=== PATIENT | male | born 1945 | race Caucasian/White ===

== ENCOUNTER 2019-10-20 09:45 | Day surgery (SDC) | payer MEDICARE, BC ==
[~2019-10-20] VITALS: Ht 175.3 cm; Wt 112.8 kg
[2019-10-20] VITALS (12 sets, daily range): BP systolic 112–154; BP diastolic 59–90
[2019-10-20] MEDS ORDERED: diphenhydrAMINE 25mg capsule PO PRN (10:05)
[2019-10-20] MEDS ORDERED: normal saline 1,000 ML IV SCH (10:05)
[2019-10-20] MEDS ORDERED: nitroGLYCERIN 0.4mg SUBLingual tab SL PRN (10:05)
[2019-10-20] MEDS ORDERED: LORazepam 0.5 MG tablet PO PRN (10:05)
[2019-10-20] MEDS ORDERED: MELO-102 PO (10:28)
[2019-10-20] MEDS ORDERED: MIRA50TA PO (10:28)
[2019-10-20] MEDS ORDERED: IRBE75TA8 PO (10:28)
[2019-10-20] MEDS ORDERED: LISI-600 PO (10:28)
[2019-10-20] MEDS ORDERED: FLUT16SP2 BOTHNARES (10:32)
[2019-10-20] MEDS ORDERED: FLO0.4C PO (10:32)
[2019-10-20] MEDS ORDERED: DIPH-689 PO (10:32)
[2019-10-20] MEDS ORDERED: IBUP-2697 PEG (10:32)
[2019-10-20] MEDS ORDERED: iohexol 350 MG/ML 50ML vial IV ONE (10:36)
[2019-10-20] MEDS ORDERED: fentaNYL/PF 50MCG/1 ML 2ML syringe ONE (10:36)
[2019-10-20] MEDS ORDERED: midazolam 2 mg/2 ml injection ONE (10:36)
[2019-10-20] MEDS ORDERED: LIDOcaine 1% (10mg/ml)w/preservative injection 20ml MDV ONE (10:36)
[2019-10-20] MEDS ORDERED: iohexol 350MG/ML 100ml bottle IV ONE (10:36)
[2019-10-20 11:06] LABS: ALBUMIN 3.9 G/DL (3.4-5.0); ANION GAP 6 (8-16); BLOOD UREA NITROGEN 20 MG/DL (7-18); BUN/CREATININE RATIO 20.6 (5.4-32.0); CALCIUM 8.9 MG/DL (8.5-10.1); CHLORIDE 103 MMOL/L (99-107); CREATININE 0.97 MG/DL (0.60-1.10); GLUCOSE 112 MG/DL (70-104); POTASSIUM 4.2 MMOL/L (3.5-5.1); SODIUM 135 MMOL/L (135-145); eGFR 76 ML/MIN
[2019-10-20 11:08] LABS: PARTIAL THROMBOPLASTIN TIME 29 SECONDS (22-32)
[2019-10-20 11:11] LABS: EOSINOPHILS # (AUTO) 0.1 X10'3 (0-0.9); EOSINOPHILS % (AUTO) 1.9 % (0-6); HEMOGLOBIN 14.4 g/dl (14.0-17.9); LYMPHOCYTES # (AUTO) 1.1 X10'3 (1.1-4.8); MEAN CORPUSCULAR HEMOGLOBIN 30.8 PG (27.0-31.0); MEAN CORPUSCULAR HGB CONC 33.5 g/dL (33.0-36.5); MEAN PLATELET VOLUME 6.9 FL (7.4-10.4); MONOCYTES # (AUTO) 0.6 X10'3 (0-0.9); MONOCYTES % (AUTO) 13.1 % (2-12); NEUTROPHILS # (AUTO) 2.8 X10'3 (1.8-7.7); PLATELET COUNT 226 X10'3 (140-440); RED BLOOD COUNT 4.68 X10'6 (4.70-6.10); RED CELL DISTRIBUTION WIDTH 13.7 % (11.5-14.5); WHITE BLOOD COUNT 4.7 X10'3 (4.5-11.0)
[2019-10-20] MEDS ORDERED: ondansetron/PF 4mg/2ml inj IV PRN (12:30)
[2019-10-20] MEDS ORDERED: HYDROcodone/acetaminophen 5mg/325mg tablet PO PRN (12:30)
[2019-10-20] MEDS ORDERED: OXAZEpam 15mg capsule PO PRN (12:30)
[2019-10-20] MEDS ORDERED: proCHLORperazine 10 MG/2 ml inj IV PRN (12:30)
[2019-10-20] MEDS ORDERED: HYDROcodone/acetaminophen 10/325mg tab PO PRN (12:30)
== END 2019-10-20 18:00 | disposition home or self-care (01) ==
LOC: MED 3N 09:45 → SSTAY O 09:45
PROVIDERS: ATTEND Internal Medicine Cardiovascular Disease
DX: R94.39 Abnormal result of other cardiovascular function study (principal); I25.119 Atherosclerotic heart disease of native coronary artery with unspecified angina pectoris; I10 Essential (primary) hypertension; E78.5 Hyperlipidemia, unspecified; G47.33 Obstructive sleep apnea (adult) (pediatric); Z85.46 Personal history of malignant neoplasm of prostate; Z79.01 Long term (current) use of anticoagulants; Z79.899 Other long term (current) drug therapy
CPT/HCPCS: 36415; 71046; 80048; 85025; 85610; 85730; 93005; 93458; 99152; 99153; C1769; J1644; J2001; J2250; J3010; Q9967; A4620; A6258; C1760